=== PATIENT | female | born 1940 | race Caucasian/White ===

== ENCOUNTER → 2016-09-03 | Outpatient (CLI) | payer MEDICARE, BC, OTHER ==
[2016-09-03 14:01] LABS: MEAN CORPUSCULAR HEMOGLOBIN 29.5 pg (27.0-33.0); MEAN CORPUSCULAR HGB CONC 34.7 g/dl (32.0-36.5); MEAN CORPUSCULAR VOLUME 85.2 fl (80.0-96.0); RED CELL DISTRIBUTION WIDTH 12.9 % (11.5-14.5); WHITE BLOOD COUNT 5.1 K/mm3 (4.0-10.0)
[2016-09-03 14:21] LABS: ALBUMIN/GLOBULIN RATIO 1.14 (1.00-1.93); ALKALINE PHOSPHATASE 51 U/L (45-117); ALT/SGPT 24 U/L (12-78); ANION GAP 8 MEQ/L (8-16); AST/SGOT 11 U/L (15-37); BILIRUBIN,TOTAL 0.6 MG/DL (0.2-1.0); BLOOD UREA NITROGEN 19 MG/DL (7-18); CALCIUM LEVEL 9.5 MG/DL (8.8-10.2); CARBON DIOXIDE LEVEL 31 MEQ/L (21-32); CHLORIDE LEVEL 101 MEQ/L (98-107); CHOLESTEROL LEVEL 234 MG/DL (<200); CREATININE FOR GFR 0.86 MG/DL (0.55-1.02); GLOMERULAR FILTRATION RATE > 60.0 (>39); GLUCOSE, FASTING 102 MG/DL (83-110); MAGNESIUM LEVEL 2.3 MG/DL (1.8-2.4); POTASSIUM SERUM 3.5 MEQ/L (3.5-5.1); SODIUM LEVEL 140 MEQ/L (136-145); TOTAL PROTEIN 7.5 GM/DL (6.4-8.2); TRIGLYCERIDES LEVEL 108 MG/DL (<150)
== END ==
LOC: M SMT 08:22
PROVIDERS: ATTEND Internal Medicine
DX: K57.90 Diverticulosis of intestine, part unspecified, without perforation or abscess without bleeding (principal); I10 Essential (primary) hypertension; E78.00 Pure hypercholesterolemia, unspecified; R94.6 Abnormal results of thyroid function studies

== ENCOUNTER → 2017-09-02 | Outpatient (CLI) | payer MEDICARE, BC, OTHER ==
[2017-09-02 14:06] LABS: ALBUMIN 4.1 GM/DL (3.2-5.2); ALBUMIN/GLOBULIN RATIO 1.08 (1.00-1.93); ALKALINE PHOSPHATASE 60 U/L (45-117); ALT/SGPT 26 U/L (12-78); ANION GAP 8 MEQ/L (8-16); AST/SGOT 11 U/L (7-37); BILIRUBIN,TOTAL 0.4 MG/DL (0.2-1.0); BLOOD UREA NITROGEN 21 MG/DL (7-18); CALCIUM LEVEL 9.7 MG/DL (8.8-10.2); CARBON DIOXIDE LEVEL 33 MEQ/L (21-32); CHLORIDE LEVEL 100 MEQ/L (98-107); CHOLESTEROL LEVEL 214 MG/DL (<200); CHOLESTEROL RISK RATIO 4.037 (<5); CREATININE FOR GFR 0.94 MG/DL (0.55-1.30); GLOMERULAR FILTRATION RATE > 60.0 (>39); GLUCOSE, FASTING 92 MG/DL (70-100); HDL CHOLESTEROL 53 MG/DL (>40); LDL CHOLESTEROL 144.8 MG/DL (<100); NON-HDL-C 161 MG/DL; POTASSIUM SERUM 3.9 MEQ/L (3.5-5.1); SODIUM LEVEL 141 MEQ/L (136-145); TOTAL PROTEIN 7.9 GM/DL (6.4-8.2); TRIGLYCERIDES LEVEL 81 MG/DL (<150)
[2017-09-02 14:08] LABS: TOTAL 25(OH) VITAMIN D 38.5 NG/ML (30.0-100.0)
== END ==
LOC: M SMT 07:50
DX: E78.00 Pure hypercholesterolemia, unspecified (principal); M85.80 Other specified disorders of bone density and structure, unspecified site
CPT/HCPCS: 80053

== ENCOUNTER → 2018-11-10 | Outpatient (CLI) | payer MEDICARE, BC, OTHER ==
[2018-11-10 11:21] LABS: HEMATOCRIT 43.5 % (36.0-47.0); HEMOGLOBIN 14.6 g/dl (12.0-15.5); MEAN CORPUSCULAR HEMOGLOBIN 29.3 pg (27.0-33.0); MEAN CORPUSCULAR HGB CONC 33.6 g/dl (32.0-36.5); MEAN CORPUSCULAR VOLUME 87.2 fl (80.0-96.0); PLATELET COUNT, AUTOMATED 260 10^3/uL (150-450); RED BLOOD COUNT 4.99 10^6/uL (4.00-5.40); WHITE BLOOD COUNT 4.5 10^3/uL (4.0-10.0)
[2018-11-10 11:33] LABS: ALBUMIN 3.7 GM/DL (3.2-5.2); ALT/SGPT 23 U/L (12-78); BILIRUBIN,TOTAL 0.5 MG/DL (0.2-1.0); BLOOD UREA NITROGEN 16 MG/DL (7-18); CALCIUM LEVEL 9.2 MG/DL (8.8-10.2); CARBON DIOXIDE LEVEL 32 MEQ/L (21-32); CHLORIDE LEVEL 103 MEQ/L (98-107); CHOLESTEROL LEVEL 218 MG/DL (<200); CHOLESTEROL RISK RATIO 4.192 (<5); CREATININE FOR GFR 0.84 MG/DL (0.55-1.30); GLOMERULAR FILTRATION RATE > 60.0 (>39); GLUCOSE, FASTING 97 MG/DL (70-100); HDL CHOLESTEROL 52 MG/DL (>40); LDL CHOLESTEROL 145 MG/DL (<100); NON-HDL-C 166 MG/DL; POTASSIUM SERUM 3.5 MEQ/L (3.5-5.1); SODIUM LEVEL 141 MEQ/L (136-145); TOTAL PROTEIN 7.2 GM/DL (6.4-8.2); TRIGLYCERIDES LEVEL 104 MG/DL (<150)
== END ==
LOC: M SMT 07:51
PROVIDERS: ATTEND Internal Medicine
DX: R94.6 Abnormal results of thyroid function studies (principal); E78.00 Pure hypercholesterolemia, unspecified; K57.90 Diverticulosis of intestine, part unspecified, without perforation or abscess without bleeding

== ENCOUNTER 2019-02-06 10:51 | Day surgery (SDC) | payer MEDICARE, BC, OTHER ==
[~2019-02-06] VITALS: Ht 167.6 cm; Wt 65.8 kg
[~2019-02-06 10:51] MED LIST: AZOP0.2S OD; CALC600T60 PO; CHLO125TA PO; CHOL100029 PO; FLUT15.819; MECL12.575 PO; NS 1,000 ML IV ONE; OMEG10002 PO; XALA0.007 OU
[2019-02-06] MEDS ORDERED: PROPOFOL 200 MG/20 ML VIAL As Ordered ONE (12:28)
[2019-02-06] MEDS ORDERED: LIDOCAINE 2% INJ 100 MG/5 ML SDV (FOR ANES.) As Ordered ONE (12:28)
--- NOTE | 2019-02-06 13:10 | ROOR ---
Patient Name: Arminda Bhatia Procedure Date: 02/06/2019 12:43 PM Date of : 1940 Age: 78 Room: [facility] Gender: Female Note Status: Finalized Procedure: Total Colonoscopy to Cecum Indications: Screening for colorectal malignant neoplasm Providers: Orion Herzog MD Referring MD: Valente Champagne MD Requesting Provider: Medicines: Monitored Anesthesia Care Complications: No immediate complications. Procedure: Pre-Anesthesia Assessment: - The heart rate, respiratory rate, oxygen saturations, blood pressure, adequacy of pulmonary ventilation, and response to care were monitored throughout the procedure. The Colonoscope was introduced through the anus and advanced to the cecum, identified by appendiceal orifice and ileocecal valve. The colonoscopy was performed without difficulty. The patient tolerated the procedure well. The quality of the bowel preparation was excellent. Findings: The perianal and digital rectal examinations were normal. Non-bleeding internal hemorrhoids were found during retroflexion. The hemorrhoids were small and Grade I (internal hemorrhoids that do not prolapse). Multiple small and large-mouthed diverticula were found in the recto-sigmoid colon, sigmoid colon and descending colon. The exam was otherwise without abnormality on direct and retroflexion views. Impression: - Non-bleeding internal hemorrhoids. - Diverticulosis in the recto-sigmoid colon, in the sigmoid colon and in the descending colon. - The examination was otherwise normal on direct and retroflexion views. - No specimens collected. - The exam was otherwise normal to the cecum. Recommendation: - Patient has a contact number available for emergencies. The signs and symptoms of potential delayed complications were discussed with the patient. Return to normal activities tomorrow. Written discharge instructions were provided to the patient. - High fiber diet. - Discharge patient to home. - Continue present medications. - Repeat colonoscopy for symptoms only. - Return to referring physician. - The findings and recommendations were discussed with the patient's family. Orion Herzog MD Orion Herzog MD 02/06/2019 1:10:17 PM Electronically signed by Orion Herzog MD Number of Addenda: 0 Note Initiated On: 02/06/2019 12:43 PM Estimated Blood Loss: Estimated blood loss: none.
[2019-02-06 13:30] VITALS: BP 177/64
== END 2019-02-06 13:47 | disposition home or self-care (01) ==
LOC: M OPP 10:51
PROVIDERS: ATTEND Internal Medicine Gastroenterology
DX: Z12.11 Encounter for screening for malignant neoplasm of colon (principal); K64.0 First degree hemorrhoids; K57.30 Diverticulosis of large intestine without perforation or abscess without bleeding; Z79.899 Other long term (current) drug therapy

== ENCOUNTER → 2019-11-16 | Outpatient (CLI) | payer MEDICARE, BC, OTHER ==
[~2019-11-16] MED LIST changes: -MECL12.575 PO; +MECL12.589 PO; -NS 1,000 ML IV ONE
[2019-11-16 12:27] LABS: HEMATOCRIT 45.2 % (36.0-47.0); HEMOGLOBIN 14.8 g/dl (12.0-15.5); MEAN CORPUSCULAR HEMOGLOBIN 28.5 pg (27.0-33.0); MEAN CORPUSCULAR HGB CONC 32.7 g/dl (32.0-36.5); MEAN CORPUSCULAR VOLUME 86.9 fl (80.0-96.0); PLATELET COUNT, AUTOMATED 285 10^3/uL (150-450); WHITE BLOOD COUNT 5.2 10^3/uL (4.0-10.0)
[2019-11-16 12:41] LABS: ALBUMIN 3.9 GM/DL (3.2-5.2); ALT/SGPT 29 U/L (12-78); BILIRUBIN,TOTAL 0.6 MG/DL (0.2-1.0); BLOOD UREA NITROGEN 17 MG/DL (7-18); CALCIUM LEVEL 9.3 MG/DL (8.8-10.2); CARBON DIOXIDE LEVEL 31 MEQ/L (21-32); CHLORIDE LEVEL 103 MEQ/L (98-107); CHOLESTEROL LEVEL 230 MG/DL (<200); CREATININE FOR GFR 0.82 MG/DL (0.55-1.30); GLOMERULAR FILTRATION RATE > 60.0 (>39); GLUCOSE, FASTING 92 MG/DL (70-100); HDL CHOLESTEROL 46 MG/DL (>40); LDL CHOLESTEROL 167 MG/DL (<100); NON-HDL-C 184 MG/DL; POTASSIUM SERUM 3.8 MEQ/L (3.5-5.1); SODIUM LEVEL 140 MEQ/L (136-145); TOTAL PROTEIN 7.5 GM/DL (6.4-8.2); TRIGLYCERIDES LEVEL 83 MG/DL (<150)
== END ==
LOC: M PLALAB 07:55
PROVIDERS: ATTEND Internal Medicine
DX: K57.90 Diverticulosis of intestine, part unspecified, without perforation or abscess without bleeding (principal); E78.00 Pure hypercholesterolemia, unspecified; R94.6 Abnormal results of thyroid function studies

== ENCOUNTER → 2020-11-25 | Outpatient (CLI) | payer MEDICARE, BC, OTHER ==
[~2020-11-25] MED LIST changes: +MECL-136 PO; -MECL12.589 PO
[2020-11-25 10:41] LABS: BASO # 0.1 10^3/uL (0.0-0.2); BASO % 1.5 % (0.0-1.0); EOS # 0.1 10^3/uL (0.0-0.5); EOS % 2.1 % (0.0-3.0); HEMATOCRIT 44.9 % (36.0-47.0); HEMOGLOBIN 14.8 g/dl (12.0-15.5); LYMPH # 1.3 10^3/uL (1.5-5.0); LYMPH % 25.3 % (24.0-44.0); MEAN CORPUSCULAR HEMOGLOBIN 28.4 pg (27.0-33.0); MONO # 0.4 10^3/uL (0.0-0.8); MONO % 8.3 % (2.0-8.0); NEUTROPHILS # 3.3 10^3/uL (1.5-8.5); PLATELET COUNT, AUTOMATED 258 10^3/uL (150-450); RED BLOOD COUNT 5.22 10^6/uL (4.00-5.40); WHITE BLOOD COUNT 5.3 10^3/uL (4.0-10.0)
[2020-11-25 11:25] LABS: ALT/SGPT 30 U/L (12-78); BILIRUBIN,TOTAL 0.6 MG/DL (0.2-1.0); BLOOD UREA NITROGEN 14 MG/DL (7-18); CALCIUM LEVEL 9.3 MG/DL (8.8-10.2); CARBON DIOXIDE LEVEL 29 MEQ/L (21-32); CHLORIDE LEVEL 103 MEQ/L (98-107); CHOLESTEROL LEVEL 228 MG/DL (<200); CREATININE FOR GFR 0.77 MG/DL (0.55-1.30); GLOMERULAR FILTRATION RATE > 60.0 (>39); GLUCOSE, FASTING 101 MG/DL (70-100); HDL CHOLESTEROL 52 MG/DL (>40); POTASSIUM SERUM 3.3 MEQ/L (3.5-5.1); SODIUM LEVEL 140 MEQ/L (136-145); TRIGLYCERIDES LEVEL 126 MG/DL (<150)
[2020-11-25 11:26] LABS: ALBUMIN 3.7 GM/DL (3.2-5.2); CHOLESTEROL RISK RATIO 4.384 (<5); LDL CHOLESTEROL 151 MG/DL (<100); NON-HDL-C 176 MG/DL; TOTAL PROTEIN 7.1 GM/DL (6.4-8.2)
== END ==
LOC: M PLALAB 08:29
PROVIDERS: ATTEND Internal Medicine
DX: E78.00 Pure hypercholesterolemia, unspecified (principal); K57.90 Diverticulosis of intestine, part unspecified, without perforation or abscess without bleeding; R94.6 Abnormal results of thyroid function studies; Z11.59 Encounter for screening for other viral diseases

== ENCOUNTER → 2021-05-12 | Outpatient (CLI) | payer MEDICARE, BC, OTHER | LOC: M WHC 09:19 | PROVIDERS: ATTEND Internal Medicine | DX: Z12.31 Encounter for screening mammogram for malignant neoplasm of breast (principal); Z13.820 Encounter for screening for osteoporosis; M85.88 Other specified disorders of bone density and structure, other site; M85.851 Other specified disorders of bone density and structure, right thigh; M85.852 Other specified disorders of bone density and structure, left thigh ==

== ENCOUNTER → 2021-05-23 | Outpatient (CLI) | payer MEDICARE, BC, OTHER ==
[2021-05-23 11:43] LABS: ALBUMIN 3.7 GM/DL (3.2-5.2); ALT/SGPT 31 U/L (12-78); BILIRUBIN,TOTAL 0.6 MG/DL (0.2-1.0); BLOOD UREA NITROGEN 15 MG/DL (7-18); CALCIUM LEVEL 9.5 MG/DL (8.8-10.2); CARBON DIOXIDE LEVEL 32 MEQ/L (21-32); CHLORIDE LEVEL 105 MEQ/L (98-107); CHOLESTEROL LEVEL 146 MG/DL (<200); CHOLESTEROL RISK RATIO 2.607 (<5); GLOMERULAR FILTRATION RATE > 60.0 (>39); GLUCOSE, FASTING 99 MG/DL (70-100); HDL CHOLESTEROL 56 MG/DL (>40); LDL CHOLESTEROL 74 MG/DL (<100); NON-HDL-C 90 MG/DL; POTASSIUM SERUM 3.6 MEQ/L (3.5-5.1); SODIUM LEVEL 140 MEQ/L (136-145); TOTAL PROTEIN 7.2 GM/DL (6.4-8.2); TRIGLYCERIDES LEVEL 78 MG/DL (<150)
== END ==
LOC: M PLALAB 07:29
PROVIDERS: ATTEND Internal Medicine
DX: E78.00 Pure hypercholesterolemia, unspecified (principal)

== ENCOUNTER → 2022-06-08 | Outpatient (CLI) | payer MEDICARE, BC, OTHER ==
[2022-06-08 12:02] LABS: C REACTIVE PROTEIN QUANTITATIV 0.5 MG/DL (<1.0); THYROID STIMULATING HORMONE 4.157 uIU/ML (0.55-4.78)
[2022-06-08 12:03] LABS: CHOLESTEROL RISK RATIO 4.28 (<5); FREE T4 1.07 NG/DL (0.89-1.76); HDL CHOLESTEROL 49.9 MG/DL (>40); LDL CHOLESTEROL 147.5 MG/DL (<100); NON-HDL-C 164.1 MG/DL
[2022-06-08 12:04] LABS: CREATININE, URINE 108.6 MG/DL; MAU/CREAT RATIO 6.4 MCG/MG (0.0-30.0)
[2022-06-08 12:13] LABS: HEMATOCRIT 44.4 % (36.0-47.0); HEMOGLOBIN 14.7 g/dl (12.0-15.5); MEAN CORPUSCULAR HEMOGLOBIN 28.9 pg (27.0-33.0); MEAN CORPUSCULAR HGB CONC 33.1 g/dl (32.0-36.5); MEAN CORPUSCULAR VOLUME 87.4 fl (80.0-96.0); PLATELET COUNT, AUTOMATED 282 10^3/uL (150-450); RED BLOOD COUNT 5.08 10^6/uL (4.00-5.40); WHITE BLOOD COUNT 5.8 10^3/uL (4.0-10.0)
[2022-06-08 12:47] LABS: HEMOGLOBIN A1c 5.8 % (4.0-6.0)
== END ==
LOC: M PLALAB 07:35
PROVIDERS: ATTEND Internal Medicine Hematology
DX: E78.00 Pure hypercholesterolemia, unspecified (principal)

== ENCOUNTER → 2023-08-12 | Outpatient (CLI) | payer MEDICARE, BC ==
[2023-08-12 12:22] LABS: C REACTIVE PROTEIN QUANTITATIV < 0.40 MG/DL (<1.0); HEMATOCRIT 43.1 % (36.0-47.0); HEMOGLOBIN 14.4 g/dl (12.0-15.5); MEAN CORPUSCULAR HEMOGLOBIN 28.8 pg (27.0-33.0); MEAN CORPUSCULAR HGB CONC 33.4 g/dl (32.0-36.5); MEAN CORPUSCULAR VOLUME 86.2 fl (80.0-96.0); PLATELET COUNT, AUTOMATED 268 10^3/uL (150-450); WHITE BLOOD COUNT 5.1 10^3/uL (4.0-10.0)
[2023-08-12 12:23] LABS: ALBUMIN 3.8 G/DL (3.2-5.2); ALKALINE PHOSPHATASE 53 U/L (46-116); ALT/SGPT 20 U/L (7.0-40); AST/SGOT 8 U/L (<34); BILIRUBIN,TOTAL 0.6 MG/DL (0.3-1.2); BLOOD UREA NITROGEN 19 MG/DL (9-23); CALCIUM LEVEL 9.9 MG/DL (8.3-10.6); CARBON DIOXIDE LEVEL 32 MMOL/L (20-31); CHLORIDE LEVEL 105 MMOL/L (98-107); CHOLESTEROL LEVEL 202 MG/DL (<200); CHOLESTEROL RISK RATIO 4.39 (<5); CREATININE FOR GFR 0.82 MG/DL (0.55-1.30); GLOMERULAR FILTRATION RATE > 60.0 (>32); GLUCOSE, FASTING 95 MG/DL (74-106); LDL CHOLESTEROL 141.2 MG/DL (<100); POTASSIUM SERUM 3.3 MMOL/L (3.5-5.1); SODIUM LEVEL 140 MMOL/L (136-145); TOTAL PROTEIN 6.9 G/DL (5.7-8.2); TRIGLYCERIDES LEVEL 74 MG/DL (<150)
[2023-08-12 12:24] LABS: TOTAL 25(OH) VITAMIN D 57.3 NG/ML (20.0-100.0)
[2023-08-12 12:25] LABS: FREE T4 1.13 NG/DL (0.89-1.76); VITAMIN B12 LEVEL 435 PG/ML (211-911)
[2023-08-12 12:48] LABS: CREATININE, URINE 186.3 MG/DL; MAU/CREAT RATIO 35.4 MCG/MG (0.0-30.0)
[2023-08-12 12:51] LABS: HEMOGLOBIN A1c 5.6 % (4.0-6.0)
== END ==
LOC: M PLALAB 07:57
PROVIDERS: ATTEND Internal Medicine Hematology
DX: E78.00 Pure hypercholesterolemia, unspecified (principal); Z79.899 Other long term (current) drug therapy

== ENCOUNTER → 2023-09-09 | Outpatient (CLI) | payer MEDICARE, BC | LOC: M WHC 10:04 | PROVIDERS: ATTEND Internal Medicine Hematology | DX: Z13.820 Encounter for screening for osteoporosis (principal); M85.851 Other specified disorders of bone density and structure, right thigh; M85.852 Other specified disorders of bone density and structure, left thigh ==

== ENCOUNTER → 2024-06-30 | Outpatient (CLI) | payer MEDICARE, BC ==
[2024-06-30 10:46] LABS: CALCIUM LEVEL 9.5 MG/DL (8.3-10.6); CREATININE FOR GFR 0.72 MG/DL (0.55-1.30); GLOMERULAR FILTRATION RATE 83.4 (>32); POTASSIUM SERUM 4.1 MMOL/L (3.5-5.1)
[2024-06-30 10:48] LABS: THYROID STIMULATING HORMONE 4.038 uIU/ML (0.55-4.78); TOTAL 25(OH) VITAMIN D 89.8 NG/ML (20.0-100.0)
[2024-06-30 11:02] LABS: HEMOGLOBIN A1c 5.6 % (4.0-6.0)
== END ==
LOC: M PLALAB 08:08
PROVIDERS: ATTEND Family Medicine
DX: Z00.00 Encounter for general adult medical examination without abnormal findings (principal); I10 Essential (primary) hypertension; E55.9 Vitamin D deficiency, unspecified; J30.2 Other seasonal allergic rhinitis; Z79.899 Other long term (current) drug therapy

== ENCOUNTER → 2024-12-26 | Outpatient (CLI) | payer MEDICARE, BC ==
[2024-12-26 11:11] LABS: CALCIUM LEVEL 9.4 MG/DL (8.3-10.6); CARBON DIOXIDE LEVEL 28.0 MMOL/L (20-31); CHLORIDE LEVEL 105.0 MMOL/L (98-107); CREATININE FOR GFR 0.74 MG/DL (0.55-1.30); GLOMERULAR FILTRATION RATE 80.7 (>32); POTASSIUM SERUM 4.2 MMOL/L (3.5-5.1); SODIUM LEVEL 142.0 MMOL/L (136-145)
== END ==
LOC: M PLALAB 08:21
PROVIDERS: ATTEND Student in an Organized Health Care Education/Training Program
DX: I10 Essential (primary) hypertension (principal)